=== PATIENT | female | born 1955 | race Caucasian/White ===

== ENCOUNTER → 2020-02-08 13:17 | Outpatient (CLI) | payer MEDICARE, BC, SELFPAY ==
--- NOTE | 2020-02-08 | DI.MRI.S_ITS ---
PROCEDURE: MR SHOULDER RT WO CON INDICATIONS: Pain in right shoulder TECHNIQUE: Noncontrast oblique coronal T2 fast spin echo with fat saturation, oblique sagittal T1 spin echo and T2 fast spin echo with fat saturation, axial T1 spin echo and T2 fast spin echo with fat saturation through the shoulder. COMPARISON: None. FINDINGS: Image quality: Excellent. Rotator cuff: Postsurgical changes are seen from prior rotator cuff repair with suture tracks in the greater tuberosity. There is mild heterogeneity of the distal supraspinatus and infraspinatus tendons without a recurrent large retracted rotator cuff tendon tear. The teres minor tendon is intact. There is mild subscapularis tendinosis. There is no significant rotator cuff muscle atrophy. Bones and bursae: There is no acute trabecular bone injury. Chronic traction cystic changes are seen in the posterior superior humeral head. Moderate degenerative changes are seen in the acromioclavicular joint without narrowing of the supraspinatus outlet. A small amount of subacromial/subdeltoid bursal fluid is expected in the postsurgical setting. Capsule and soft tissues: Intrasubstance signal in the superior labrum may be related to mild degeneration or prior surgical debridement. No displaced labral tear seen. No focal high-grade cartilage defect is identified. The long head of the biceps tendon demonstrates normal location and morphology. The rotator interval appears normal, without fibrosis. IMPRESSION: 1. Postsurgical changes from prior rotator cuff repair without a large recurrent full-thickness rotator cuff tendon tear. There is mild subscapularis tendinosis. 2. Increased intrasubstance signal in the superior labrum may be related to surgical debridement or mild degeneration. 3. Moderate acromioclavicular joint osteoarthrosis. Dictated by: Suresh Sinha M.D. on 02/08/2020 at 15:24 Approved by: Suresh Sinha M.D. on 02/08/2020 at 15:36
== END ==
PROVIDERS: PCP Internal Medicine; Referring Provider Internal Medicine; Visit Provider Internal Medicine
DX: M25.511 Pain in right shoulder (principal); M19.011 Primary osteoarthritis, right shoulder
CPT/HCPCS: 73221

== ENCOUNTER → 2021-05-02 07:36 | Outpatient (CLI) | payer MEDICARE, BC, SELFPAY ==
--- NOTE | 2021-05-02 | DI.MG.S_ITS ---
BILATERAL DIGITAL SCREENING MAMMOGRAM 3D/2D WITH CAD: 05/02/2021 CLINICAL: Routine screening. Comparison is made to exams dated: 07/29/2018 mammogram, 03/21/2017 mammogram, and 11/16/2015 mammogram - outside location. The tissue of both breasts is heterogeneously dense. This may lower the sensitivity of mammography. Current study was also evaluated with a Computer Aided Detection (CAD) system. There are new grouped calcifications in the right breast at 11 o'clock middle depth. No other significant masses, calcifications, or other findings are seen in either breast. IMPRESSION: INCOMPLETE: NEEDS ADDITIONAL IMAGING EVALUATION The new grouped calcifications in the right breast are indeterminate. Magnification, lateral, and additional views are recommended. This exam was interpreted at Station ID: [id number]. NOTE: For mammograms, a report in lay terms will be sent to the patient. Approximately 15% of breast malignancies will not be visualized mammographically. In the management of a palpable breast mass, a negative mammogram must not discourage biopsy of a clinically suspicious lesion. Electronically Signed By: Suresh nava/devan:05/03/2021 08:19:49 letter sent: Additional Imaging Needed ACR BI-RADS Category 0: Incomplete 3340F
== END ==
PROVIDERS: PCP Internal Medicine; Referring Provider Internal Medicine; Visit Provider Internal Medicine
DX: Z12.31 Encounter for screening mammogram for malignant neoplasm of breast (principal); M85.88 Other specified disorders of bone density and structure, other site; Z78.0 Asymptomatic menopausal state; Z90.722 Acquired absence of ovaries, bilateral
CPT/HCPCS: 77063; 77067; 77080

== ENCOUNTER → 2021-05-30 11:29 | Outpatient (CLI) | payer MEDICARE, BC, SELFPAY ==
--- NOTE | 2021-05-30 | DI.MG.S_ITS ---
UNILATERAL RIGHT DIGITAL DIAGNOSTIC MAMMOGRAM 3D/2D WITH ADDITIONAL VIEWS: 05/30/2021 CLINICAL: Additional evaluation requested from prior study. Comparison is made to exams dated: 05/02/2021 mammogram - [facility] and 07/29/2018 mammogram - outside location. The tissue of right breast is heterogeneously dense. This may lower the sensitivity of mammography. There are new grouped heterogeneous, mixed fine and curvilinear calcifications in the right breast at 12 o'clock middle depth. No other significant masses or calcifications are seen in the breast. IMPRESSION: SUSPICIOUS OF MALIGNANCY The calcifications in the right breast are suspicious of malignancy. A stereotactic biopsy is recommended. Findings and recommendations were discussed with the patient in person by Dr. Asher Grove at time of exam. This exam was interpreted at Station ID: [id number]. NOTE: For mammograms, a report in lay terms will be sent to the patient. Approximately 15% of breast malignancies will not be visualized mammographically. In the management of a palpable breast mass, a negative mammogram must not discourage biopsy of a clinically suspicious lesion. Electronically Signed By: Mare grant/:05/30/2021 11:50:51 letter sent: Biopsy Required ACR BI-RADS Category 4: Suspicious abnormality 3344F
== END ==
PROVIDERS: PCP Internal Medicine; Referring Provider Internal Medicine; Visit Provider Internal Medicine
DX: R92.8 Other abnormal and inconclusive findings on diagnostic imaging of breast (principal); R92.1 Mammographic calcification found on diagnostic imaging of breast
CPT/HCPCS: 77065; G0279

== ENCOUNTER → 2022-12-11 09:51 | Outpatient (CLI) | payer MEDICARE, BC, SELFPAY ==
--- NOTE | 2022-12-12 18:46 | DI.NM.S_ITS ---
DATE OF SERVICE: 12/12/2022 PROCEDURE PERFORMED: Exercise treadmill stress and rest myocardial perfusion imaging with gating to assess ejection fraction and regional wall motion. ORDERING PROVIDER: Thu Miranda M.D. INDICATIONS: The patient is a 67-year-old female with atypical chest discomfort. CARDIAC STRESS: The patient was able to exercise for 9 minutes 34 seconds on a standard [employer] protocol, suggesting exceptional exercise capacity with an CLARKE of -59%. She had a normal heart rate and blood pressure response to exercise, achieving a maximum heart rate of 160 bpm (106% of her predictedmaximum). She had no chest discomfort or anginal symptoms. Her resting ECG is normal with no significant ST-segment shifts or arrhythmias with stress. At 8 minutes, 30 seconds of exercise, at a heart rate of 130 bpmI, 26.3 millicuries of technetium-99m Myoview was injected and she was imaged 10 minutes later using a gated SPECT acquisition protocol. The day prior while at rest, she had been injected with 24.3 millicuries of technetium-99m Myoview and was imaged 20 minutes later, again using a quantitated gated SPECT protocol. FINDINGS: 1. Raw data. There is good myocardial tracer uptake with moderate breast shadows noted that clearly produce some attenuation. The lung/heart ratio is normal at 0.34 with a normal TID ratio of 0.83. 2. Quantitated gated SPECT: Post-stress ejection fraction is estimated at 91%, likely an overestimate because of small left ventricular volumes. There are no focal wall motion abnormalities, and specifically the anterior wall has brisk contractility. The resting ejection fraction is estimated at 80% with a normal resting end-diastolic volume of 74 mL. 3. Myocardial perfusion imaging: Post-stress supine images show a fairly normal myocardial perfusion pattern although with a mild defect in the distal anterior wall extending to, but excluding the apex, in a pattern that would be consistent with breast attenuation artifact, supported by its complete resolution on the prone images, revealing a normal, homogeneous perfusion pattern. The resting images showed similar perfusion pattern to that of the post-stress supine images without any clear areas of improvement. IMPRESSION: 1. Normal myocardial perfusion study. 2. Mild, fixed distal anterior defect that resolves on prone imaging, most consistent with breast attenuation artifact. There is no compelling evidence for myocardial ischemia or previous myocardial infarction. 3. Vigorous left ventricular systolic function without any focal wall motion abnormality. 4. Exceptional exercise capacity without angina or ECG evidence of ischemia. Milana Huynhae - /kassie/ doc#: [id number]/job#: [id number] dd: 12/12/2022 17:18:00 dt: 12/12/2022 18:21:00 DICTATING MD/COPIES TO: Beto Willett MD; Thu Miranda M.D. COPIES MNE: ADAMARIS;
== END ==
PROVIDERS: PCP Internal Medicine; Referring Provider Internal Medicine; Visit Provider Internal Medicine
DX: R07.89 Other chest pain (principal); E78.5 Hyperlipidemia, unspecified
CPT/HCPCS: 78452; 93017; A9502